=== PATIENT | female | born 1970 | race Caucasian/White ===

== ENCOUNTER 2016-02-10 20:20 | Emergency (ER) | payer OTHER ==
[~2016-02-10] VITALS: Ht 177.8 cm; Wt 62.2 kg
[~2016-02-10 20:20] MED LIST: ALBUTEROL0.09 MG/A1 IH; KLONOPIN 0.5MG0.5 MG PO; KLONOPIN 1MG1 MG PO; TRAZODO50 MG PO; ZOLOFT 25MG25 MG PO
[2016-02-10 20:22] VITALS: TEMP 98
[2016-02-10 21:17] LABS: PH 6 (5-8); SQUAMOUS EPITHELIAL 0-2 /hpf; URINE APPEARANCE Clear; URINE BACTERIA Rare /hpf; URINE BILIRUBIN Negative (NEGATIVE); URINE BLOOD Negative (NEGATIVE); URINE COLOR Yellow; URINE GLUCOSE Negative (NEGATIVE); URINE KETONE Negative (NEGATIVE); URINE RBC 0-2 /hpf; URINE UROBILINOGEN Negative (NEGATIVE)
[2016-02-10 21:26] LABS: URINE WBC 0-2 /hpf
[2016-02-10 22:11] VITALS: BP 109/68; PULSE 81
== END 2016-02-10 22:10 | disposition home or self-care (01) ==
LOC: COL.ER 20:20
PROVIDERS: Emergency Medicine
DX: R07.9 Chest pain, unspecified (principal); F17.210 Nicotine dependence, cigarettes, uncomplicated

== ENCOUNTER → 2017-03-15 | Outpatient (CLI) | payer OTHER | LOC: COL.RAD 12:48 | DX: M25.512 Pain in left shoulder (principal) | CPT/HCPCS: J3301; Q9967 ==